=== PATIENT | male | born 1985 | race Hispanic/Latino ===

== ENCOUNTER 2023-07-03 13:15 | Inpatient (IN) | payer OTHER, SELFPAY ==
[2023-07-03] VITALS (9 sets, daily range): BP systolic 107–151; BP diastolic 78–115; BMI 23.0; BMI 21.7
[2023-07-03] MEDS: NSS 1000 IV ×3 (10:20→23:27)
[2023-07-03] MEDS: ATIVAN 2 MG IV (10:20)
--- NOTE | 2023-07-03 10:21 | ED.GENMED ---
History of Present Illness
General
Chief Complaint: Seizure
Source: family and ambulance crew
Time Seen by Provider: 07/03/23 10:15
Travel History
Have you had any contact with someone who has COVID-19?: No
Do you have any symptoms of coronavirus? Fever > 100 degrees, chills, cough, shortness of breath, sore throat, loss of taste or smell, muscle aches, or headache?: No
History of Present Illness
History of Present Illness:
38-year-old male with unknown past medical history but known chronic alcohol abuse presenting to the ER with EMS and family who states that approximately 20 minutes prior to arrival patient had just finished breakfast and went to go lay on the couch
when family witnessed a tonic-clonic seizure describing full body movements, foaming at the mouth that lasted approximately 1 minute. Upon arrival to the [facility] EMS states patient seemed postictal and remained this way. They note patient is
significantly tremulous and tachycardic. No medications were given prior to arrival to the hospital. Family reports that patient had been missing for about 1 year but he came back home yesterday and has been living with the family since yesterday.
They do note patient has a history of chronic alcohol use but patient is unable to quantify how much alcohol he drinks daily. It is also unknown as to when patient's last drink was. Family who is present believes that patient has had alcohol
withdrawal seizures before.
Past History
Past History
ED Past Medical History: Other (Chronic alcohol use)
ED Past Surgical History: None
Social History
Tobacco: Non-smoker
Alcohol: Chronic alcoholic
Drug: None
Personal: Single
Living: with family
Review of Systems
Review of Systems
All Other Systems: ROS reviewed and negative except as documented in HPI and ROS
Phy Exam
Physical Exam
Physical Exam:
GENERAL: Alert , in no apparent distress, thin, appears older than stated age
EYE: pupils equal and reactive, 3 mm bilateral
NECK: Supple
ENT: o/p clr, mmm.
CARDIAC: Tachycardic rate and rhythm with heart rate between 130 and 140 bpm
LUNGS: Clear breath sounds bilaterally, no acute respiratory distress, no wheezes/rales/rhonchi
ABDOMEN: Soft, without focal tenderness, no r/g, no cvat
NEUROLOGICAL: Alert and oriented to self but not place nor time
SKIN: Warm and dry, skin intact.
MUSCULOSKELETAL: well perfused.
PSYCH: Normal and appropriate interaction.
Scores
Heart Failure Risk
Heart Failure Risk Score: Not Applicable
Heart Score for Chest Pain Patients
STEMI patient?: Not applicable
Withdrawal Assessment of Alcohol
Withdrawal Assessment Completed?: Yes
Nausea and Vomiting: Mild nausea with no vomiting
Tactile Disturbances: Very mild itching, pins and needles, burning or numbness
Tremor: Moderate, with patient's arms extended
Auditory Disturbances: Not present
Paroxysmal Sweats: No sweat visible
Visual Disturbances: Not present
Anxiety: Mild anxiety
Headache, Fullness in Head: Not present
Agitation: Moderately fidgety and restless
Orientation and clouding of sensorium: Cannot do serial additions or is uncertain about date
Total CIWA Score: 12
Alcohol Withdrawal Medication Recommendation: Equal to MSAS Score 5-7. Lorazepam 1mg IV or PO NOW & re-assess q2hrs
Course
Orders/Labs/Results
Orders:
Orders
07/03/23
Electrocardiogram (*1) Stat
Reason for Study: Chest Pain
Comment: DONE
07/03/23 10:16
Drug Screen, Urine [Urine Drug Abuse Screen] Urgent
Date Specimen was Collected: 07/03/23
Time Specimen was Collected: 11:33
0.9% Sodium Chloride 1000 ml [Nss] 1,000 ml IV BOLUS
Lorazepam [Ativan] 2 mg IV NOW STA
07/03/23 10:18
CT Head W/o Iv Contrast Urgent
Comment:
Reason For Exam: seizure, suspected ETOH
07/03/23 10:21
Alcohol Urgent
Complete Blood Count/With Diff Urgent
Comprehensive Metabolic Panel Urgent
Magnesium Urgent
PTT Urgent
Phos [Phosphorus] Urgent
Prothrombin Time Urgent
07/03/23 12:17
Add On- LAB Urgent
Tests Added?: urine etoh
Abnormal Lab Results
07/03/23
10:21
RBC 4.52 L 10^6/uL
(4.70-6.10)
MCH 33.6 H pg
(27.0-31.0)
Absolute Lymphs (auto) 1.0 L 10^3/uL
(1.2-3.4)
Neutrophils % 78.9 H %
(42.2-75.2)
Lymphocytes % 12.6 L %
(20.5-51.1)
Sodium 130 L mmol/L
(135-145)
Chloride 95 L mmol/L
(98-107)
Carbon Dioxide 21 L mmol/L
(22-30)
BUN 7 L mg/dl
(9-20)
Creatinine 0.4 L mg/dL
(0.7-1.3)
Glucose 193 H mg/dl
(70-99)
Total Bilirubin 2.2 H mg/dl
(0.2-1.3)
AST 271 H U/L
(17-59)
ALT 80 H U/L
(0-50)
Alkaline Phosphatase 159 H U/L
(38-126)
Total Protein 8.6 H g/dl
(6.3-8.2)
07/03/23 10:21
07/03/23 10:21
Vital Signs
Initial and Last Documented VS:
Initial Vital Signs
Temp Pulse Resp BP Pulse Ox
99.8 F 130 21 138/94 96
07/03/23 10:14 07/03/23 10:14 07/03/23 10:14 07/03/23 10:14 07/03/23 10:14
Last Documented Vital Signs
Temp Pulse Resp BP Pulse Ox
99.8 F 130 21 138/94 96
07/03/23 10:14 07/03/23 10:14 07/03/23 10:14 07/03/23 10:14 07/03/23 10:14
MDM/Problems Addressed
Differential Diagnosis Includes:
Alcohol withdrawal seizure, less likely epileptic seizure, electrolyte disturbance, less likely intracranial bleeding
MDM/Problems Addressed:
38-year-old male with history of longstanding alcohol abuse presenting to the emergency for evaluation after it appears patient had an alcohol withdrawal seizure. He arrives still postictal, tachycardic, tremulous and somewhat confused. It is
unclear as to when patient's last drink was. He states he drinks only 3 or 4 beers daily but family reports he drinks much more than this. Will treat with 2 mg of Ativan for withdrawals. IV fluids ordered. Anticipate admission for continued
treatment.
Chronic conditions affecting care: Other (Chronic alcohol use)
Acute Exacerbation and/or Progression of Chronic Illness: Other (Chronic alcohol use)
*Radiology
Radiology exam reviewed: radiology read reviewed
*Pulse Oximetry
Patient hypoxic: no
*EKG
Interpreted by ED Provider?: Yes
Comparison EKG: no comparison EKG present
Heart Rate: 129
Rate: tachycardiac
Rhythm: sinus
[place]: normal axis
Ischemia: no ischemia
*Audio Visual Tech Interpretation
Rate: tachycardiac
Rhythm: sinus
*Critical Care Note
Total Time (30-74mins, 75-104mins- exclusive of procedures): Not Applicable
Patient Management
Discussion with other providers: Hospitalist
Escalation/DeEscalation of care consider admission/obs:
Patient's heart rate mildly improved following Ativan however he remains significantly tremulous. Given his lack of follow-up, known medical history and withdrawal seizure this morning I do not feel patient is a safe dispo home. Will admit for
continued monitoring, as needed Ativan, and possibly BCARES consultation. Hospitalist team is aware and accepts patient for continued evaluation and treatment.
ED Attending Note
-
Portions of this chart may have been created with voice recognition software.� Occasional wrong word or��sound alike� substitutions may have occurred due to the inherent limitations of voice recognition software.
Discharge Plan
Departure
Patient Disposition: Admit
Date of Disposition: 07/03/23
Time of Disposition: 11:05
Presentation/result/management discussed w/ accepting MD/DO: Hospitalist
Discharge Problem:
Alcohol withdrawal seizure
Prescriptions:
No Action
No Current Medications
0
Referrals:
NONE,* [Family Provider] -
Interventions
Interventions:
*Risk Screen - Suicide Last Done: 07/03/23 10:14
*General Assessment Last Done: 07/03/23 10:14
*Neglect/Abuse Screening Last Done: 07/03/23 10:14
[2023-07-03 10:34] LABS: % Eosinophils 0.4 % (0-6); % Immature Granulocytes 0.4 % (0-0.5); % Lymphocytes 12.6 % (20.5-51.1); % Monocytes 6.7 % (1.7-9.3); % Neutrophils 78.9 % (42.2-75.2); Absolute Basophils 0.1 10^3/uL (0-0.2); Absolute Monocytes 0.5 10^3/uL (0.1-0.6); Absolute Neutrophils 6.2 10^3/uL (1.4-6.5); Hematocrit 41.7 % (39.0-52.0); Hemoglobin 15.2 g/dL (13.0-18.0); Mean Corp Hgb Conc. 36.5 g/dL (33.0-37.0); Mean Corpuscular Hgb 33.6 pg (27.0-31.0); Mean Corpuscular Volume 92.3 fL (80.0-94.0); Mean Platelet Volume 9.2 fL (7.4-10.4); Nucleated Red Blood Cells % 0 % (-); Platelet Count 171 10^3/uL (130-400); Red Blood Cell Count 4.52 10^6/uL (4.70-6.10); White Blood Cell Count 7.9 10^3/uL (4.8-10.8)
[2023-07-03 10:41] LABS: INR 1.04; PT 13.4 Sec (11.4-14.6)
[2023-07-03 10:42] LABS: APTT 27.5 Sec (23.4-35.0)
[2023-07-03 10:44] LABS: ALT (SGPT) 80 U/L (0-50); AST (SGOT) 271 U/L (17-59); Albumin 4.8 g/dl (3.5-5.0); Alkaline Phosphatase 159 U/L (38-126); Blood Urea Nitrogen 7 mg/dl (9-20); Carbon Dioxide 21 mmol/L (22-30); Chloride 95 mmol/L (98-107); Estimated Creatinine Clearance > 125 ml/min; Glucose 193 mg/dl (70-99); Magnesium 1.6 mg/dl (1.6-2.3); Phosphorus 2.8 mg/dl (2.5-4.5); Potassium 3.5 mmol/L (3.5-5.1); Sodium 130 mmol/L (135-145); Total Bilirubin 2.2 mg/dl (0.2-1.3); Total Protein 8.6 g/dl (6.3-8.2); eGFR > 60.00
[2023-07-03 10:46] LABS: Alcohol None Detected
--- NOTE | 2023-07-03 12:06 | HPS.HSE ---
Addendum entered and electronically signed by Seth Brizuela MD 07/03/23 13:15:
Seen and examined by me independently in collaboration with the nurse practitioner Deepa.
Past medical history/social history/medication/allergies reviewed.
Lab data and imaging data reviewed.
Patient with chronic alcohol abuse presents with tonic-clonic seizure x 1 today which happened at home.
Patient speaks Slovenian and his cousin was at bedside as well shooter.
Patient went missing for a year and resurfaced on Monday at his uncles house in [place]. Family in [facility] went to pick him up.
He was ok. He drank beer *6 in afternoon and had some Tequilla in night . This morning helped tonic-clonic seizure for a minute followed by postictal state. He had a prior history of seizures presumed alcohol withdrawal. His Chronic alcoholism
with withdrawal issues. He normally can drink up to a bottle of vodka or tequila a day. Is constantly drinking in the day.
In the last few days due to money constraints he was not drinking as much. Despite having above-mentioned drink yesterday patient's alcohol level not detected on labs today probably very fast metabolizer.
Another factor is he has been drinking less quantity than prior due to money issues lately. Denies drug use.
Currently he is awake and oriented to place, person, day of the week and the year. Not month. He follows commands. He is tremulous. His heart rate is elevated. Blood pressure is okay. Not feeling nauseous. No abdominal pain. Nonfocal
neurologically other than tremors.
Clinical suspicion of alcohol withdrawal seizure
Currently experiencing alcohol withdrawals .
Patient is interested in alcohol rehab program.
Admit to hospital. Started IV fluids, alcohol withdrawal protocol including phenobarb. Suspicion is high likelihood of moderate to severe withdrawal syndrome.Admit to IMU.
Clinical diagnosis, treatment plan discussed with cousin present at bedside. Told him high morbidity and mortality with severe CATY state.
Original Note:
Family Physician
-
Family Physician: * NONE
Chief Complaint
-
seizure
History of Present Illness
38-year-old male with unknown past medical history but known chronic alcohol abuse presented to us with 2 minutes of witnessed tonic clonic seizure describing full body movements. noted foaming at the mouth. Family reports that patient had been
missing for about 1 year but he came back home yesterday and has been living with the family since yesterday. patient drinks more than 4 bottle vodka daily. last drink was last night 9PM. cousin not sure, if he saying truth or not. patient denied
MOORE, dizzy or syncopal episode. denied fever, chills, chest pain, sob. denied abdominal pain, n,v, d. denied dysuria or hematuria. patient stated he had seizure in the past from alcohol withdrawal.
received a dose of Ativan in ER. admitting for further management.
Medical History
Past Medical History
Past Medical History: Reports None
Past Surgical History: Reports None
Social History
Tobacco: Smoker (occassionaly)
Alcohol: Daily (3-4 vodka daily)
Drug: None
Personal: Single
Living: With Family
Employment: Not Employed
Family History
Family History: Not pertinent
Allergies / Home Medications
Allergies reflects when Allergies were last updated in [employer].
Home Medications with original date entered in [employer]
Allergy/Medication List:
Allergies
Allergy/AdvReac Type Severity Reaction Status Date / Time
No Known Allergies Allergy Verified 07/03/23 10:19
Home Medications
No Meds [No Current Medications] 07/03/23
Review of Systems
-
Constitutional: Reports No Symptoms
EENT: Reports No Symptoms
Respiratory: Reports No Symptoms
Cardiac: Reports No Symptoms
Abdomen/GI: Reports No Symptoms
: Reports No Symptoms
Musculoskeletal: Reports No Symptoms
Skin: Reports No Symptoms
Neurological: Reports No Symptoms
Endocrine: Reports No Symptoms
Hematologic/Lymphatic: Reports No Symptoms
Psych: Reports No Symptoms
Physical Exam
Vital Signs
Vital Signs
Temp Pulse Resp BP Pulse Ox
99.8 F 130 21 138/94 96
07/03/23 10:14 07/03/23 10:14 07/03/23 10:14 07/03/23 10:14 07/03/23 10:14
Physical Exam
General: Well Developed, Well Nourished and No Apparent Distress
HEENT: NormoCephalic, Moist mucous membranes and Atraumatic
Respiratory: Clear
Cardiac: S1/S2 and Regular Rhythm; No Murmur or Rub
GI: Soft, Non Tender, Non Distended and Normal Bowel Sounds; No Organomegaly
Rectal: Deferred by Provider
Musculoskeletal: No Clubbing, No Cyanosis and No Edema
Skin: No Rash
Neuro: AO x 3 and Nonfocal/grossly intact
Psych: Calm
Laboratory Results
-
07/03/23 10:21
07/03/23 10:21
Laboratory Results
PT 13.4 Sec (11.4-14.6) 07/03/23 10:21
INR 1.04 07/03/23 10:21
APTT 27.5 Sec (23.4-35.0) 07/03/23 10:21
Total Bilirubin 2.2 mg/dl (0.2-1.3) H 07/03/23 10:21
AST 271 U/L (17-59) H 07/03/23 10:21
ALT 80 U/L (0-50) H 07/03/23 10:21
Alkaline Phosphatase 159 U/L (38-126) H 07/03/23 10:21
Data Reviewed
-
CT Scan: Report Reviewed by me
Lab Data: Labs Reviewed by me
Impression/Plan
-
#alcohol withdrawal seizure
-head CT with No acute intracranial abnormality.
-Ativan prn
-phenobarbital added
-alcohol protocol
-monitor MSAS score
-CTm
#hyponatremia likely from dehydration
-na 130
-normal saline continued
-monitor BMP in am
#elevated transaminase likely from alcohol abuse
-ast 271, ALt 80, alk 159
-denied abdominal pain
-ctm
#DVT prophylaxis
-Lovenox
#CODE status
-full code
[2023-07-03 13:05] LABS: Amphetamines Negative (Negative); Barbiturates Negative (Negative); Benzodiazepines Positive (Negative); Buprenorphine Negative (Negative); Cocaine Negative (Negative); Marijuana Negative (Negative); Methadone Negative (Negative); Methamphetamines Negative (Negative); Opiates Negative (Negative); Phencyclidine Negative (Negative); Tricyclic Antidepressants Negative (Negative)
[2023-07-03 13:42] LABS: Fentanyl, Urine Negative (Negative)
[2023-07-03] MEDS: PHENOBARBITAL 104 MG IV (13:42)
--- NOTE | 2023-07-03 14:40 | PTCARENOTE ---
Received patient from ED on stretcher. Patient Sierra Leonean speaking only. Patient's cousin in room to help translate and help with admission questions. Patient ST on monitor, heart rates 120's. MSAS ordered. IV fluids NSS@ 125 mls/hr infusing.
Clear liquid diet ordered. Oriented patient to room.
[2023-07-03] MEDS: ATIVAN 1 MG IV ×3 (16:02→23:19)
[2023-07-03] MEDS: NSS (PRESERVATIVE FREE) 0.5 ML IV (16:02)
[2023-07-03] MEDS: LOVENOX 40 MG SC (17:37)
[2023-07-03] MEDS: THIAMINE INJECTION 200 MG IV ×2 (17:37→23:20)
[2023-07-03] MEDS: PHENOBARBITAL 97.5 MG IV (21:10)
--- NOTE | 2023-07-03 22:35 | PTCARENOTE ---
Assumed care of Pt from Day RN. Pt Israeli speaking, family in room at times using electronics engineering manager jennifer for communication. Pt on MSAS, see work list. Pt appears to be resting comfortably, respiration even and unlabored. Vitals stable at this time.
Assessment care and vitals as charted.
[2023-07-04] VITALS (9 sets, daily range): BP systolic 110–146; BP diastolic 74–108; BMI 21.7
[2023-07-04] MEDS: ATIVAN 1 MG PO (02:42)
[2023-07-04] MEDS: ATIVAN 1 MG IV (04:54)
[2023-07-04 05:20] LABS: Hematocrit 38.6 % (39.0-52.0); Hemoglobin 13.8 g/dL (13.0-18.0); Mean Corp Hgb Conc. 35.8 g/dL (33.0-37.0); Mean Corpuscular Hgb 33.5 pg (27.0-31.0); Mean Corpuscular Volume 93.7 fL (80.0-94.0); Mean Platelet Volume 9.5 fL (7.4-10.4); Platelet Count 152 10^3/uL (130-400); Red Blood Cell Count 4.12 10^6/uL (4.70-6.10); White Blood Cell Count 8.8 10^3/uL (4.8-10.8)
[2023-07-04 06:09] LABS: ALT (SGPT) 69 U/L (0-50); AST (SGOT) 162 U/L (17-59); Albumin 4.2 g/dl (3.5-5.0); Alkaline Phosphatase 128 U/L (38-126); Blood Urea Nitrogen 6 mg/dl (9-20); Calcium 9.2 mg/dl (8.4-10.2); Carbon Dioxide 21 mmol/L (22-30); Chloride 99 mmol/L (98-107); Estimated Creatinine Clearance > 125 ml/min; Glucose 85 mg/dl (70-99); Potassium 3.5 mmol/L (3.5-5.1); Sodium 128 mmol/L (135-145); Total Bilirubin 2.7 mg/dl (0.2-1.3); Total Protein 7.5 g/dl (6.3-8.2); eGFR > 60.00
--- NOTE | 2023-07-04 08:51 | W.PN.HOSP.TC ---
Today's Communication/Plan
-
Advance diet. Continue with current alcohol withdrawal protocol
Check urine lites and follow sodium
Assessment / Plan
Assessment / Plan
#alcohol withdrawal seizure
# History of prior alcohol withdrawal seizures.
-head CT with No acute intracranial abnormality.
-cw Ativan prn; watch for recurrence.
# Acute alcohol withdrawal syndrom
- pt presents with alcohol withdrawals ;overt sympathetic activity and tremors noted on admission.
- On MSAS protocol and Phenobarb taper
-Today with mild tremors but no tachycardia or hypertension.
-Case management to help patient with alcohol rehab resources
-Advance diet
#hyponatremia
-na 128
-No significant drop with IV fluids noted
- Check urine lytes
-monitor BMP
- Check TSH/Cortisol
# Abnormal liver function test with cholestatic hepatitis picture-suspect alcohol-related
-Hepatitis discriminant index taking control PTH 13-second is 5
-Patient without any fever, leukocytosis or abdominal pain. Not a candidate for steroids.
-Continue to follow liver function test. Check hepatitis serologies.
#DVT prophylaxis
-Lovenox
#CODE status
-full code
Anticipated Discharge: 24 - 48 hours
Subjective/Interval History
-
Date of Service: July 04, 2023
No further seizures.
Limited Kazakh and language barrier makes it difficult for conversation today.
Discussed with RN-no overnight events.
Patient states no nausea and would like to have regular diet.
Objective Data
-
Labs:
Laboratory Results
07/04/23
04:59
WBC 8.8
Hgb 13.8
Hct 38.6 L
Plt Count 152
Sodium 128 L
Potassium 3.5
Chloride 99
Carbon Dioxide 21 L
BUN 6 L
Creatinine 0.4 L
Glucose 85
Calcium 9.2
Total Bilirubin 2.7 H
AST 162 H
ALT 69 H
Alkaline Phosphatase 128 H
Vital Signs:
Vital Signs
Temp Pulse Resp BP Pulse Ox
98.0 F 81 17 121/84 96
07/04/23 07:45 07/04/23 06:00 07/04/23 06:00 07/04/23 06:00 07/04/23 03:45
I&O
07/03/23 07/04/23 07/05/23
06:59 06:59 06:59
Intake Total 3430 / 3430
Output Total 2650 / 2650 450 / 450
Balance 780 / 780 -450 / -450
Review of Systems
-
Unable to obtain full review of systems at this time due to: Language Barrier
Physical Exam
-
General: No Apparent Distress
HEENT: Moist Mucous Membranes
Respiratory: Clear to Auscultation
Cardiac: Regular Rhythm and S1/S2; Negative Tachycardic
GI: Soft, Nontender, Nondistended and Normal Bowel Sounds
Neuro: Awake, Alert and Tremors (mild tremors)
Psych: Calm
Data Reviewed
-
Labs: Labs Reviewed by me
[2023-07-04] MEDS: THIAMINE INJECTION 200 MG IV ×3 (09:20→22:02)
[2023-07-04] MEDS: FOLVITE 1 MG PO (09:20)
[2023-07-04] MEDS: NSS 1000 IV (09:22)
[2023-07-04] MEDS: PHENOBARBITAL 97.5 MG IV ×3 (09:32→22:02)
[2023-07-04 12:15] LABS: Osmolality Urine 251 mOsm/kg (300-900)
--- NOTE | 2023-07-04 12:58 | CM ---
Addendum entered by Kaylee Prince RN 07/04/23 13:20:
Ángel from [facility] met with patient, who is interested in an inpatient or outpatient Etoh program. Ángel will check and see if patient may be eligible for an inpatient program at [facility], where there are other Trinidadian speaking patients. He is aware
that the patient has no insurance.
Plan follow up with GLORIA.
Original Note:
Patient with Dx alcohol withdrawal seizure, hyponatremia. Tox screen noted. MSAS protocol. Receiving IV Phenobarb, IV Ativan prn.
Attempted to meet with patient who was sleeping.
Spoke with patient's cousin Jayson;
the patient had been homeless for about a year and living in [place].
The family had lost contact with him and just found him 2 days prior to admission and brought him to [place].
The patient is residing with his cousin and his aunt in a first floor apartment.
He has been independent in ADLs and ambulation.
The patient has no DME or prior VN.
The patient has no insurance and no PCP.
Provided information to Jayson re; [facility].
Informed patient's cousin PRIYANKA will leave [facility] brochure in Trinidadian at bedside.
Spoke with JAYLAN Villalobos; she will be screening the patient for MA eligibility.
Jayson says that he is aware of patient using alcohol and one time use of cocaine.
He says that the patient wants to start a new chapter of his life without using Etoh/drugs.
He says patient will be willing to talk to GLORIA.
Referral to GLORIA Neal.
Plan follow up with GLORIA.
[2023-07-04 14:25] LABS: Urine Sodium 84 mmol/L (30-90)
--- NOTE | 2023-07-04 18:23 | PTCARENOTE ---
Remained in bed all day- any attempts to get up he is very unsteady, tremulous. MSAS 1-4 throughout the day- phenobarb doses help - sleepy after administration. Oriented , language barrier - folder inspector at bedside. IVF infusing. He did eat lunch
and afterwards had explosive diarrhea- tried to use his urinal to contain it. Whole bed changed. Grateful for care.
[2023-07-04] MEDS: LOVENOX 40 MG SC (18:46)
--- NOTE | 2023-07-04 22:29 | PTCARENOTE ---
Received pt at change of shift. Pt interacting appropriately with staff. MSAS 2. No PRN medications required at this time. Pt increasing fluid intake appropriately since IVF discontinued. Using the urinal with no problems. Pt tremulous at rest
but not diaphoretic; remains afebrile and calm. Pt resting in bed with call peguero in reach.
[2023-07-05] VITALS (12 sets, daily range): BP systolic 111–131; BP diastolic 80–112; BMI 21.2
--- NOTE | 2023-07-05 03:32 | DOWNTIME ---
There was a [employer] Client Compressor Mechanic Downtime on 07/05/2023 from 0100 to 07/05/2023 at 0322. Downtime documentation of patient's care, including medication administrations, has been reconciled in the electronic record per guidelines. Refer to the
patient's paper chart under the miscellaneous tab to see printed paper medication records and downtime forms.
[2023-07-05 04:59] LABS: Hematocrit 40.5 % (39.0-52.0); Mean Corpuscular Hgb 34.2 pg (27.0-31.0); Mean Corpuscular Volume 92.5 fL (80.0-94.0); Mean Platelet Volume 9.2 fL (7.4-10.4); Platelet Count 164 10^3/uL (130-400); Red Blood Cell Count 4.38 10^6/uL (4.70-6.10); Red Cell Dist. Width 11.9 % (11.5-14.5); White Blood Cell Count 5.6 10^3/uL (4.8-10.8)
[2023-07-05 05:28] LABS: ALT (SGPT) 73 U/L (0-50); AST (SGOT) 190 U/L (17-59); Albumin 4.3 g/dl (3.5-5.0); Alkaline Phosphatase 152 U/L (38-126); Blood Urea Nitrogen 8 mg/dl (9-20); Calcium 9.7 mg/dl (8.4-10.2); Carbon Dioxide 23 mmol/L (22-30); Chloride 96 mmol/L (98-107); Estimated Creatinine Clearance > 125 ml/min; Glucose 90 mg/dl (70-99); Potassium 3.6 mmol/L (3.5-5.1); Sodium 130 mmol/L (135-145); Total Bilirubin 1.7 mg/dl (0.2-1.3); Total Protein 7.7 g/dl (6.3-8.2); eGFR > 60.00
[2023-07-05 05:54] LABS: Cortisol, Random 9.3 ug/dl
[2023-07-05] MEDS: FOLVITE 1 MG PO (08:50)
[2023-07-05] MEDS: THIAMINE INJECTION 200 MG IV ×3 (08:50→23:07)
[2023-07-05] MEDS: PHENOBARBITAL 97.5 MG IV ×2 (08:50→15:26)
--- NOTE | 2023-07-05 15:14 | W.PN.HOSP.TC ---
Today's Communication/Plan
-
All discussed with the patient and the family at the bedside
Discussed with the nurse
Assessment / Plan
Assessment / Plan
Physical exam: No sign and symptom of withdrawal currently.
General: Awake, alert and oriented x3, not in distress and holds appropriate conversation.
HEENT: No active discharge, ecchymosis or bruising, moist lips, tongue and mucous membrane.
Eyes: No discharge or red conjunctiva, no nystagmus, pupils are reactive and equal
Neck:Supple, no JVD no bruit no goiter.
Respiratory: Normal AP contour and diameter, normal chest wall movement, normal respiratory effort, no respiratory distress,
Lungs: Good air entry bilaterally, no wheezing or rhonchi, no rales or crackles
Heart: S1, S2 regular, normal rate, no added sound.
Gastrointestinal: Positive bowel sounds, soft, nontender, no guarding or rigidity or organomegaly
Musculoskeletal: , no chest wall abnormality or tenderness. All joints and extremities have good range of motion, no muscle tenderness or any joint swelling or tenderness.
Extremities: No pitting edema, good peripheral pulses, good range of motion
Skin: Warm and dry, no ulceration, normal color.
Psychiatric: Normal mood, normal thought and judgment, normal affect,
#alcohol withdrawal seizure
# History of prior alcohol withdrawal seizures.
-head CT with No acute intracranial abnormality.
-cw Ativan prn; watch for recurrence.
-Recheck electrolyte specially magnesium
-Supplemental thiamine
# Acute alcohol withdrawal syndrom-so far is improving and, no evidence of withdrawal but high risk to go to severe withdrawal and DT
- pt presents with alcohol withdrawals ;overt sympathetic activity and tremors noted on admission.
- On MSAS protocol and Phenobarb taper
-Close monitoring.
-Case management to help patient with alcohol rehab resources
-Tolerates diet
Had a long conversation and counseled about quitting alcohol and risks of the continuation explained to him in detail, he is willing to quit
#hyponatremia
-Improving,
-Monitor
-No significant drop with IV fluids noted
- Check urine lytes
-monitor BMP
- Check TSH/Cortisol
# Abnormal liver function test with cholestatic hepatitis picture-suspect alcohol-related
-Hepatitis discriminant index taking control PTH 13-second is 5
-Avoid hepatotoxic
-Recheck CMP.
-Patient without any fever, leukocytosis or abdominal pain. Not a candidate for steroids.
-Continue to follow liver function test. Check hepatitis serologies.
#DVT prophylaxis
-Lovenox
#CODE status
-full code
Anticipated Discharge: > 48 hours
Subjective/Interval History
-
Date of Service: July 05, 2023
Seen and examined, awake and alert, answer question properly, speaks some degree of Lithuanian well his cousin at the bedside help out to translate.
Denies any fever or chill or cough or congestion, no nausea or vomiting or any weakness or numbness in extremities. No headache or vision change.
Had 1 episode of nonbloody loose bowel earlier.
Tolerating diet.
Symptomatic withdrawal
No new seizure assessment in the hospital
Objective Data
-
Labs:
Laboratory Results
07/05/23
04:50
WBC 5.6
Hgb 15.0
Hct 40.5
Plt Count 164
Sodium 130 L
Potassium 3.6
Chloride 96 L
Carbon Dioxide 23
BUN 8 L
Creatinine 0.4 L
Glucose 90
Calcium 9.7
Total Bilirubin 1.7 H D
AST 190 H
ALT 73 H
Alkaline Phosphatase 152 H
Vital Signs:
Vital Signs
Temp Pulse Resp BP Pulse Ox
97.2 F 78 21 116/85 98
07/05/23 12:00 07/05/23 12:00 07/05/23 12:00 07/05/23 12:00 07/05/23 12:00
I&O
07/04/23 07/05/23 07/06/23
07:59 07:59 07:59
Intake Total 3430 / 3430 2440 / 2440 240 / 240
Output Total 3100 / 3100 2575 / 2575 350 / 350
Balance 330 / 330 -135 / -135 -110 / -110
Review of Systems
-
All other systems: Reviewed and negative
[2023-07-05 15:58] LABS: Magnesium 1.7 mg/dl (1.6-2.3)
--- NOTE | 2023-07-05 16:26 | CM ---
Peruvian speaking patient with Dx alcohol withdrawal seizure, hyponatremia. Tox screen noted. MSAS protocol. Per nurse assessment; assist of 1, stood at bedside, coarse tremors.
Spoke with GLORIA Neal; the patient was given information re; Peruvian speaking AA meetings, and Peruvian speaking therapists. He will not be able to get him a mandi for the [employer] due to having no SS card or other ID.
Message to Dr Padilla requesting PT/OT Evals.
Plan follow up after PT/OT Evals.
Plan home with Etoh outpatient referrals.
[2023-07-05] MEDS: LOVENOX 40 MG SC (17:28)
--- NOTE | 2023-07-05 17:34 | PTCARENOTE ---
MSAS 2-4-2 today, very tremulous and tachycardic just before next dose of phenobarb due- sleepy afterwards and tremors much improved after dose. Tremors are extremely coarse with any activity however made it into the bathroom stood for approx 2 min
and made it back to bed. ST 110-120 on tele during activity. Tolerating po diet- we are ordering for him- unable to tolerate any greasy foods at this time.
--- NOTE | 2023-07-05 18:18 | PTCARENOTE ---
Sat up without support to eat dinner HR s up to 150s- resolved on own with rest.
[2023-07-05] MEDS: LUMINAL 64.7999999999999972 MG PO (23:07)
--- NOTE | 2023-07-05 23:14 | PTCARENOTE ---
Received pt at change of shift. Pt interacting with staff appropriately. Able to ambulate to bathroom with minimal assistance. BMx1 this evening. No episodes of incontinence. Bed alarm on. MSAS 4. pt resting in bed with call peguero in reach.
[2023-07-06] VITALS (12 sets, daily range): BP systolic 94–137; BP diastolic 72–102; PULSE 100–168; BMI 21.2
--- NOTE | 2023-07-06 02:36 | PTCARENOTE ---
Assumed care of Pt from night RN. Pt AAOX3, MSAS currently 4. Pt has no complains at this time. Vitals stable at this time.
[2023-07-06] MEDS: ATIVAN 1 MG IV ×3 (04:39→17:39)
--- NOTE | 2023-07-06 04:42 | PTCARENOTE ---
Pt becoming tachycardic into the 130's. Tossing and turning in bed, up on knees trying to get to stand on feet in bed then throwing self back into lying position. Pulling cords off while trying to recover with blankets. Visible diaphoresis. Pt was
able to be slightly settled with with verbal reorientation with translation but still appearing agitated and restless. Pt has no complaints of pain or hallucination. MSAS completed and medication given(see MAR).
[2023-07-06 04:51] LABS: Hematocrit 44.3 % (39.0-52.0); Hemoglobin 16.3 g/dL (13.0-18.0); Mean Corp Hgb Conc. 36.8 g/dL (33.0-37.0); Mean Corpuscular Hgb 34.2 pg (27.0-31.0); Mean Corpuscular Volume 93.1 fL (80.0-94.0); Mean Platelet Volume 9.5 fL (7.4-10.4); Platelet Count 209 10^3/uL (130-400); Red Blood Cell Count 4.76 10^6/uL (4.70-6.10); Red Cell Dist. Width 12.1 % (11.5-14.5); White Blood Cell Count 7.1 10^3/uL (4.8-10.8)
[2023-07-06 05:22] LABS: ALT (SGPT) 140 U/L (0-50); AST (SGOT) 434 U/L (17-59); Albumin 4.6 g/dl (3.5-5.0); Alkaline Phosphatase 165 U/L (38-126); Blood Urea Nitrogen 13 mg/dl (9-20); Calcium 10.1 mg/dl (8.4-10.2); Carbon Dioxide 23 mmol/L (22-30); Chloride 98 mmol/L (98-107); Estimated Creatinine Clearance > 125 ml/min; Glucose 100 mg/dl (70-99); Magnesium 1.8 mg/dl (1.6-2.3); Potassium 4.4 mmol/L (3.5-5.1); Sodium 130 mmol/L (135-145); Total Bilirubin 1.5 mg/dl (0.2-1.3); Total Protein 8.4 g/dl (6.3-8.2); eGFR > 60.00
[2023-07-06] MEDS: THIAMINE INJECTION 200 MG IV (09:06)
[2023-07-06] MEDS: LUMINAL 64.7999999999999972 MG PO (09:07)
[2023-07-06] MEDS: FOLVITE 1 MG PO (09:07)
[2023-07-06] MEDS: ATIVAN 1 MG PO ×3 (12:14→21:52)
[2023-07-06] MEDS: NSS (PRESERVATIVE FREE) 0.5 ML IV ×2 (13:31→17:39)
--- NOTE | 2023-07-06 15:22 | W.PN.HOSP.TC ---
Today's Communication/Plan
-
All discussed with the patient
Discussed with the nurse
Assessment / Plan
Assessment / Plan
Physical exam: No sign and symptom of withdrawal currently.
General: Fine tremor of upper extremity awake, alert and oriented x3, not in distress and holds appropriate conversation.
HEENT: No active discharge, ecchymosis or bruising, moist lips, tongue and mucous membrane.
Eyes: No discharge or red conjunctiva, no nystagmus, pupils are reactive and equal
Neck:Supple, no JVD no bruit no goiter.
Respiratory: Normal AP contour and diameter, normal chest wall movement, normal respiratory effort, no respiratory distress,
Lungs: Good air entry bilaterally, no wheezing or rhonchi, no rales or crackles
Heart: S1, S2 regular, normal rate, no added sound.
Gastrointestinal: Positive bowel sounds, soft, nontender, no guarding or rigidity or organomegaly
Musculoskeletal: , no chest wall abnormality or tenderness. All joints and extremities have good range of motion, no muscle tenderness or any joint swelling or tenderness.
Extremities: No pitting edema, good peripheral pulses, good range of motion
Psychiatric: Normal mood, normal thought and judgment, normal affect,
#alcohol withdrawal seizure
# History of prior alcohol withdrawal seizures.
-head CT with No acute intracranial abnormality.
-cw Ativan prn; watch for recurrence.
-Look like And worsening symptoms that he has mentioned he is at high risk for DVT
Because of elevated liver enzymes and phenobarbital being metabolized through the liver we will stop phenobarbital taper doses instead use Ativan taper 1 to 1 mg every 6 hours for the next 24 hours followed by half a milligram every 6 hour for 24
hours in addition to as needed doses as discussed with the pharmacy.
-Recheck electrolyte specially magnesium
-Supplemental thiamine
# Acute alcohol withdrawal syndrome-so far is improving and, no evidence of withdrawal but high risk to go to severe withdrawal and DT
- pt presents with alcohol withdrawals ;overt sympathetic activity and tremors noted on admission.
-DC phenobarbital taper as mentioned above
-Close monitoring.
-Case management to help patient with alcohol rehab resources
-Tolerates diet
Had a long conversation and counseled about quitting alcohol and risks of the continuation explained to him in detail, he is willing to quit
#hyponatremia
-Improving,
-Monitor
-No significant drop with IV fluids noted
- Check urine lytes
-monitor BMP
- Check TSH/Cortisol
# Abnormal liver function test with cholestatic hepatitis picture-suspect alcohol-related
-Hepatitis discriminant index taking control PTH 13-second is 5
-Avoid hepatotoxic
-Recheck CMP.
-Patient without any fever, leukocytosis or abdominal pain. Not a candidate for steroids.
-Continue to follow liver function test. Check hepatitis serologies.
#DVT prophylaxis
-Lovenox
#CODE status
-full code
Anticipated Discharge: > 48 hours
Subjective/Interval History
-
Date of Service: July 06, 2023
Seen examined earlier was awake, alert overall was doing better still having some fine tremors but better than before, look like later becoming more confused and restless and sweaty.
No nausea or vomiting, eating and drinking well.
Objective Data
-
Labs:
Laboratory Results
07/06/23
04:34
WBC 7.1
Hgb 16.3
Hct 44.3
Plt Count 209 D
Sodium 130 L
Potassium 4.4
Chloride 98
Carbon Dioxide 23
BUN 13
Creatinine 0.5 L
Glucose 100 H
Calcium 10.1
Total Bilirubin 1.5 H
AST 434 H
ALT 140 H
Alkaline Phosphatase 165 H
Vital Signs:
Vital Signs
Temp Pulse Resp BP Pulse Ox
97.4 F 117 24 137/102 96
07/06/23 11:10 07/06/23 10:00 07/06/23 10:00 07/06/23 10:00 07/06/23 10:00
I&O
07/05/23 07/06/23 07/07/23
07:59 07:59 07:59
Intake Total 2440 / 2440 480 / 480 240 / 240
Output Total 2575 / 2575 850 / 850
Balance -135 / -135 -370 / -370 240 / 240
Review of Systems
-
All other systems: Reviewed and negative
--- NOTE | 2023-07-06 16:25 | PTCARENOTE ---
Rec'd pt this AM. MSAS score gradually increased throughout shift. 1mg IV ativan given for MSAS 9. Dr. Padilla updated via TT. Pt calmer since, now sleeping, arousable. When pt OOB with PT hr 150s. assessment completed with bi analyst via language
line ipad.
[2023-07-06] MEDS: LOVENOX 40 MG SC (16:34)
[2023-07-06 19:50] LABS: Hepatitis B Surface Antigen Negative (Negative)
[2023-07-06 20:09] LABS: Hepatitis B Core Ab, Total Negative (Negative); Hepatitis C Antibody Negative (Negative)
[2023-07-06] MEDS: VITAMIN B1 100 MG PO (21:53)
[2023-07-06 22:32] LABS: Hepatitis B Surface Antibody Indeterminate
[2023-07-07] VITALS (13 sets, daily range): BP systolic 102–135; BP diastolic 69–93; BMI 21.2
[2023-07-07] MEDS: ATIVAN 1 MG PO ×2 (03:54→11:53)
[2023-07-07 04:38] LABS: Hematocrit 41.4 % (39.0-52.0); Mean Corp Hgb Conc. 36.2 g/dL (33.0-37.0); Mean Corpuscular Hgb 34.1 pg (27.0-31.0); Mean Corpuscular Volume 94.1 fL (80.0-94.0); Mean Platelet Volume 9.7 fL (7.4-10.4); Platelet Count 216 10^3/uL (130-400); Red Cell Dist. Width 12.1 % (11.5-14.5)
--- NOTE | 2023-07-07 05:32 | PTCARENOTE ---
Pt is forgetful to the date but aware of place and situation. MSAS has been 2-4; tolerating scheduled PO Ativan. Tremors are present but not severe. HR is 80-100s; did not increase above 110s. Denies N/V. Voiding via urinal. Call peguero within reach.
Pt aware how to utilize the call peguero if he needs anything.
[2023-07-07 05:45] LABS: ALT (SGPT) 202 U/L (0-50); AST (SGOT) 517 U/L (17-59); Albumin 4.2 g/dl (3.5-5.0); Alkaline Phosphatase 162 U/L (38-126); Blood Urea Nitrogen 16 mg/dl (9-20); Calcium 9.8 mg/dl (8.4-10.2); Carbon Dioxide 21 mmol/L (22-30); Chloride 99 mmol/L (98-107); Estimated Creatinine Clearance > 125 ml/min; Glucose 114 mg/dl (70-99); Magnesium 1.8 mg/dl (1.6-2.3); Potassium 4.3 mmol/L (3.5-5.1); Sodium 132 mmol/L (135-145); Total Bilirubin 1.2 mg/dl (0.2-1.3); Total Protein 7.7 g/dl (6.3-8.2); eGFR > 60.00
[2023-07-07] MEDS: FOLVITE 1 MG PO (08:39)
[2023-07-07] MEDS: VITAMIN B1 100 MG PO (08:39)
--- NOTE | 2023-07-07 10:24 | CM ---
CM following re: discharge planning.
Reviewed pt's chart, met with pt.
PT and OT evaluations noted - pt has no skilled PT/OT needs.
Per GLORIA Neal, the patient was given information re; [place]an speaking AA meetings, and Niuean speaking therapists. He will not be able to get him a mandi for the [employer] due to having no SS card or other ID.
D/C plan: home with outpatient ETOH resources
CM will follow with discharge plan updates as hospitalization progresses
[2023-07-07] MEDS: NSS 1000 IV ×2 (11:53→20:17)
[2023-07-07] MEDS: THIAMINE INJECTION 100 MG IV (11:53)
[2023-07-07] MEDS: THERAGRAN 1 TABLET PO (11:53)
--- NOTE | 2023-07-07 15:46 | W.PN.HOSP.TC ---
Addendum entered and electronically signed by Reza Crespo MD 07/07/23 23:01:
Attending Addendum-
I saw and evaluated the patient. I reviewed the resident�s note and agree with findings and plan as documented in the resident�s note. patient with etoh withdrawl and acute hepatitis. patient speaks broken slovak but comprehensible. has no
complaints. Full 12 point ROS reviewed and negative except as documented Exam: GEN- disheveled appearing Heart- RRR lungs clear abd mild tender epigastric area LE no edema Plan:
# Acute ETOH W/D s/p seizure- cont MSAS with ativan- phenobarb stopped due to increased LFT's, start IV thiamine add MVI start IVF cont folic acid- cont to monitor closely, counselled re cessation
# Hypovolemic Hyponatremia- start IVF recheck BMP in am
# Acute Hepatitis- likely EToH related, trending up- start IVF repeat CMP in am
# Epigastric Abd pain- check lipase, check abd u/s to eval for cirrhosis/ascites repeat CMP in am
# DVT proph- lovenox
Dispo- transfer to tele cont to monitor MSAS
Time spent coordinating care, review of plan of care with resident, review of records, med rec, consults, notes, labs, rads, d/w nursing - 55 mins
Original Note:
Today's Communication/Plan
-
transfer to telemetry
IV fluids
Thiamine, folic acid, multivitamin
Abdominal US
Assessment / Plan
Assessment / Plan
38 year old male presented to ED with tonic clonic seizure at home followed by a postictal state.
Assessment and PLAN
Alcohol Withdrawal Seizures
- History of prior alcohol withdrawal seizures.
- On MSAS protocol, on lorazepam
- Tremulous last night, no tremors this morning.
- Increase risk for DT
Switched to IV thiamine 100 mg, multivitamin, folic acid - Banana bag
Patient agreed for alcohol rehab program
Monitor closely
Hypovolumic Hyponatremia
- Iv fluid
CMP in am
Acute transaminitis due to alcohol hepatitis
- Rising level of AST 517>434>190, ALT 202>140>73
- Total bilirubin level resolved to 1.2
- Continue IV fluids
- Risk of alcoholic liver cirrhosis- ordered abdominal US
-Continue to follow liver function test
#transfer to telemetry
#DVT prophylaxis
-Lovenox
#CODE status
-full code
Anticipated Discharge: 24 - 48 hours
Subjective/Interval History
-
Date of Service: July 07, 2023
Patient denies abdominal pain, tremors, hallucinations.
Objective Data
-
Labs:
Laboratory Results
07/07/23
03:54
WBC 6.0
Hgb 15.0
Hct 41.4
Plt Count 216
Sodium 132 L
Potassium 4.3
Chloride 99
Carbon Dioxide 21 L
BUN 16
Creatinine 0.5 L
Glucose 114 H
Calcium 9.8
Total Bilirubin 1.2
AST 517 H*
ALT 202 H
Alkaline Phosphatase 162 H
Vital Signs:
Vital Signs
Temp Pulse Resp BP Pulse Ox
98.2 F 88 17 102/69 98
07/07/23 15:14 07/07/23 08:00 07/07/23 08:00 07/07/23 08:00 07/06/23 22:21
I&O
07/06/23 07/07/23 07/08/23
06:59 06:59 06:59
Intake Total 480 / 480 1200 / 1200
Output Total 850 / 850 250 / 250 400 / 400
Balance -370 / -370 950 / 950 -400 / -400
Review of Systems
-
History Source: Patient
All other systems: Reviewed and negative
Physical Exam
-
General: Comfortable
HEENT: Normocephalic, Atraumatic and Other (icteric )
Respiratory: Clear to Auscultation
Cardiac: Regular Rhythm and S1/S2
GI: Soft, Nontender, Nondistended, Normal Bowel Sounds and No Hepatosplenomegaly
Musculoskeletal: No Edema
Neuro: AO x 3
Hematologic / Lymphatic: No Lymphadenopathy
Psych: Calm
Data Reviewed
-
Labs: Labs Reviewed by me and Discussed with Physician
[2023-07-07] MEDS: LOVENOX 40 MG SC (16:58)
[2023-07-07] MEDS: ATIVAN 0.5 MG PO ×2 (16:58→21:01)
--- NOTE | 2023-07-07 17:39 | PTCARENOTE ---
pt transferred to [facility] level of care. pt being transferred to room 429. report given to recieving zain mejia.
--- NOTE | 2023-07-07 18:30 | PTCARENOTE ---
Received from IMU into room 429. Utilized language line to update patient on plan of care, verbalizes understanding. Oriented to room. Call peguero in reach, bed alarm in place and monitoring.
[2023-07-08 03:05] VITALS: BP 117/83
[2023-07-08] MEDS: ATIVAN 0.5 MG PO (03:24)
[2023-07-08] MEDS: NSS 1000 IV ×2 (04:04→14:21)
[2023-07-08 07:40] VITALS: BP 121/84
[2023-07-08 08:46] LABS: % Basophils 1.7 % (0-2); % Immature Granulocytes 0.3 % (0-0.5); % Lymphocytes 20.2 % (20.5-51.1); % Monocytes 12.5 % (1.7-9.3); % Neutrophils 58.3 % (42.2-75.2); Absolute Basophils 0.1 10^3/uL (0-0.2); Absolute Eosinophils 0.4 10^3/uL (0-0.7); Absolute Lymphocytes 1.2 10^3/uL (1.2-3.4); Absolute Monocytes 0.7 10^3/uL (0.1-0.6); Absolute Neutrophils 3.4 10^3/uL (1.4-6.5); Hematocrit 41.6 % (39.0-52.0); Hemoglobin 14.7 g/dL (13.0-18.0); Mean Corp Hgb Conc. 35.3 g/dL (33.0-37.0); Mean Corpuscular Hgb 33.8 pg (27.0-31.0); Mean Corpuscular Volume 95.6 fL (80.0-94.0); Mean Platelet Volume 9.5 fL (7.4-10.4); Nucleated Red Blood Cells % 0 % (-); Platelet Count 230 10^3/uL (130-400); Red Blood Cell Count 4.35 10^6/uL (4.70-6.10); White Blood Cell Count 5.9 10^3/uL (4.8-10.8)
[2023-07-08 09:10] LABS: ALT (SGPT) 306 U/L (0-50); AST (SGOT) 715 U/L (17-59); Albumin 4.2 g/dl (3.5-5.0); Alkaline Phosphatase 142 U/L (38-126); Blood Urea Nitrogen 10 mg/dl (9-20); Calcium 9.8 mg/dl (8.4-10.2); Carbon Dioxide 23 mmol/L (22-30); Chloride 96 mmol/L (98-107); Estimated Creatinine Clearance > 125 ml/min; Glucose 79 mg/dl (70-99); Magnesium 1.7 mg/dl (1.6-2.3); Sodium 129 mmol/L (135-145); Total Bilirubin 1.2 mg/dl (0.2-1.3); Total Protein 7.7 g/dl (6.3-8.2); eGFR > 60.00
[2023-07-08] MEDS: THIAMINE INJECTION 100 MG IV (09:43)
[2023-07-08] MEDS: THERAGRAN 1 TABLET PO (09:43)
[2023-07-08] MEDS: FOLVITE 1 MG PO (09:43)
[2023-07-08 11:07] VITALS: BP 118/77
[2023-07-08] MEDS: ATIVAN PO (13:32)
--- NOTE | 2023-07-08 14:43 | W.PN.HOSP.TC ---
Today's Communication/Plan
-
Continue Alcohol withdrawal monitoring
Hepatic Transaminases worsening significantly -- consult GI
Assessment / Plan
Assessment / Plan
Physical Exam
General: Comfortable
HEENT: Normocephalic, Atraumatic and Other (icteric )
Respiratory: Clear to Auscultation
Cardiac: Regular Rhythm and S1/S2
GI: Soft, Nondistended, Normal Bowel Sounds. Mild epigastric tenderness.
Musculoskeletal: No Edema
Neuro: AAO x 3
Psych: Calm

38 year old male presented to ED with tonic clonic seizure at home followed by a postictal state.
Assessment/Plan
Alcohol Withdrawal Seizures
- History of prior alcohol withdrawal seizures.
- On MSAS protocol, on lorazepam
- Phenobarb was stopped due to increasing hepatic transaminases
- Tremulous earlier this hospitalization, now no tremors observed
- Increased risk for DT
Continue thiamine, multivitamin, folic acid
Patient agreed for alcohol rehab program
Monitor closely
Hypovolemic Hyponatremia
-Sodium not improved after IV fluids
-PO FR
-Consult nephrology, recommendations appreciated
Acute transaminitis due to alcohol hepatitis
- Rising level of AST 517>434>190, ALT 202>140>73
- Total bilirubin level resolved to 1.2
- Continue IV fluids
- Risk of alcoholic liver cirrhosis - abdominal US as per radiologist's report: 'No gallstones or bile duct dilatation. Increased hepatic parenchymal echotexture and diminished sound through
transmission, suggesting fatty infiltration.'
-July 08, 2023: AST and ALT are worsening significantly despite phenobarbital being stopped
-Consulted GI, recommendations appreciated
#DVT prophylaxis
-Lovenox
#CODE status
-full code
Anticipated Discharge: > 48 hours
Subjective/Interval History
-
Date of Service: July 08, 2023
Patient was seen and examined. He reported being hungry but otherwise denied any other new, significant complaints.
Objective Data
-
Labs:
Laboratory Results
07/08/23
07:47
WBC 5.9
Hgb 14.7
Hct 41.6
Plt Count 230
Sodium 129 L
Potassium 4.0
Chloride 96 L
Carbon Dioxide 23
BUN 10
Creatinine 0.4 L
Glucose 79
Calcium 9.8
Total Bilirubin 1.2
AST 715 H*
ALT 306 H
Alkaline Phosphatase 142 H
Vital Signs:
Vital Signs
Temp Pulse Resp BP Pulse Ox
98.2 F 100 18 118/77 99
07/08/23 11:07 07/08/23 11:07 07/08/23 11:07 07/08/23 11:07 07/08/23 11:07
I&O
07/07/23 07/08/23 07/09/23
06:59 06:59 06:59
Intake Total 1200 / 1200 1460 / 1460
Output Total 250 / 250 1900 / 1900
Balance 950 / 950 -440 / -440
[2023-07-08 15:35] VITALS: BP 115/78
--- NOTE | 2023-07-08 15:48 | W.CON.NEPH ---
Consultation
-
Date/Time Consultation Requested: July 08, 2023 2 PM
Date/Time Consultation Performed: July 08, 2023 3:48 PM
Requesting Provider: Dr. Castro
Performing Provider: Dr. Akers
Reason for Consultation: Hyponatremia
Medical History
-
Chief Complaint: Hyponatremia
History of Present Illness:
This is a 38-year-old gentleman who has very limited past medical history as he does not have a regular doctor nor does he seek regular medical care. He does have known alcoholism. Reportedly he had vanished from his family for about a year
and then was rediscovered at his uncles house in the [place]. His family went to retrieve him. He continued to have alcohol and developed a tonic-clonic seizure. He was brought to the emergency room for evaluation and was admitted. He was noted to
have hyponatremia here around 130 which has not changed. His liver function tests have began to worsen as well. His oral intake has been okay according to the patient.
Past Medical History
Alcoholism, fatty liver, no surgery
Social History
Tobacco: Non-Smoker
Alcohol: Chronic Alcoholic
Family History
Family History: Not Pertinent
Allergies / Home Medications
Allergy/AdvReac Type Severity Reaction Status Date / Time
No Known Allergies Allergy Verified 07/03/23 10:19
�Medication �Instructions �Recorded �Confirmed �Type
No Meds [No Current Medications] 07/03/23 07/03/23 History
Review of Systems
-
No fevers chills or sweats. No chest pain. No shortness of breath. No abdominal pain. No diarrhea. No issues with urine output. The remainder of the complete review of systems was negative.
Physical Exam
Vital Signs
Vital Signs
Temp Pulse Resp BP Pulse Ox
98.2 F 100 18 118/77 99
07/08/23 11:07 07/08/23 11:07 07/08/23 11:07 07/08/23 11:07 07/08/23 11:07
Lab Results
WBC 5.9 10^3/uL (4.8-10.8) 07/08/23 07:47
RBC 4.35 10^6/uL (4.70-6.10) L 07/08/23 07:47
Hgb 14.7 g/dL (13.0-18.0) 07/08/23 07:47
Hct 41.6 % (39.0-52.0) 07/08/23 07:47
Plt Count 230 10^3/uL (130-400) 07/08/23 07:47
Sodium 129 mmol/L (135-145) L 07/08/23 07:47
Potassium 4.0 mmol/L (3.5-5.1) 07/08/23 07:47
Chloride 96 mmol/L (98-107) L 07/08/23 07:47
Carbon Dioxide 23 mmol/L (22-30) 07/08/23 07:47
BUN 10 mg/dl (9-20) 07/08/23 07:47
Creatinine 0.4 mg/dL (0.7-1.3) L 07/08/23 07:47
eGFR > 60.00 07/08/23 07:47
Glucose 79 mg/dl (70-99) 07/08/23 07:47
Calcium 9.8 mg/dl (8.4-10.2) 07/08/23 07:47
Phosphorus 2.8 mg/dl (2.5-4.5) 07/03/23 10:21
Albumin 4.2 g/dl (3.5-5.0) 07/08/23 07:47
Physical Exam
General: AOx3
HEENT: PERRL, EOMI, Ear/Nose Intact, Hearing Normal, Oropharynx Clear/Moist, Neck Supple, Trachea Midline, No JVD and No Thyromegaly
Respiratory: Clear
Abdomen: Soft, Nontender, Nondistended, Normal Bowel Sounds and No Hepatosplenomegaly
Musculoskeletal: No Edema
Skin: No Rash and No Cyanosis
Psych: Mood/afflect pleasant and Insight/judgement good
Assessment/Plan
-
Assessment:
Alcoholism
Hyponatremia
Fatty liver
Transaminitis
Seizure
Plan:
I will offer hypertonic saline at this time.
IV fluids may be held as his oral intake is good.
Follow basic metabolic panel serially
Benzodiazepines for potential of alcohol withdrawal
Data Reviewed
-
Radiology: Report Reviewed by me (On July 08, 2023 abdominal ultrasound shows fatty liver no hydronephrosis; on 07/03/2023 CT of the head shows no active disease)
Medical Tests (Nuc Med, Echo etc): Image Personally Visualized and interpreted (EKG on 07/03/2023 by me shows sinus tachycardia)
Labs: Labs Reviewed by me
[2023-07-08] MEDS: SODIUM CHLORIDE 3% 250 IV (17:37)
[2023-07-08] MEDS: LOVENOX 40 MG SC (17:37)
[2023-07-08 19:54] VITALS: BP 117/80
[2023-07-08 21:01] LABS: Blood Urea Nitrogen 9 mg/dl (9-20); Calcium 9.6 mg/dl (8.4-10.2); Carbon Dioxide 24 mmol/L (22-30); Chloride 96 mmol/L (98-107); Estimated Creatinine Clearance > 125 ml/min; Glucose 109 mg/dl (70-99); Potassium 3.9 mmol/L (3.5-5.1); Sodium 132 mmol/L (135-145); eGFR > 60.00
--- NOTE | 2023-07-08 21:30 | PTCARENOTE ---
Patient was started on 3% NSS today at 1740, it was started at 25 cc/hr. Repeat blood work at 1999 showed a sodium level of 132 (from 129). Notified PROVIDER SCRIBE cooperative education director and asked about decreasing rate or d/cing gtt. She requested I reach out to nephro.
per Dr Akers, stop 3% saline gtt. I asked about repeat labs, will await orders.
Drip turned off. Used aircraft engine mechanic supervisor (Valentino [phone]) to explain plan and that there may be more blood work this evening and that we are watching his blood work closely.
Will continue to monitor patient.
[2023-07-08 23:30] VITALS: BP 112/86
[2023-07-09 04:12] VITALS: BP 126/88
[2023-07-09 07:35] VITALS: BP 113/89
[2023-07-09 10:02] LABS: Hematocrit 45.6 % (39.0-52.0); Hemoglobin 15.7 g/dL (13.0-18.0); Mean Corp Hgb Conc. 34.4 g/dL (33.0-37.0); Mean Corpuscular Hgb 33.5 pg (27.0-31.0); Mean Corpuscular Volume 97.4 fL (80.0-94.0); Mean Platelet Volume 9.1 fL (7.4-10.4); Platelet Count 263 10^3/uL (130-400); Red Blood Cell Count 4.68 10^6/uL (4.70-6.10); Red Cell Dist. Width 12.1 % (11.5-14.5); White Blood Cell Count 6.5 10^3/uL (4.8-10.8)
[2023-07-09 10:05] LABS: ALT (SGPT) 421 U/L (0-50); AST (SGOT) 745 U/L (17-59); Albumin 4.7 g/dl (3.5-5.0); Alkaline Phosphatase 152 U/L (38-126); Blood Urea Nitrogen 8 mg/dl (9-20); Calcium 10.2 mg/dl (8.4-10.2); Carbon Dioxide 27 mmol/L (22-30); Chloride 95 mmol/L (98-107); Estimated Creatinine Clearance > 125 ml/min; Glucose 113 mg/dl (70-99); Potassium 4.3 mmol/L (3.5-5.1); Sodium 132 mmol/L (135-145); Total Protein 8.6 g/dl (6.3-8.2); eGFR > 60.00
[2023-07-09 10:32] LABS: Direct Bilirubin 0.4 mg/dl (0.0-0.4)
--- NOTE | 2023-07-09 11:30 | CON.GI ---
Consultation
-
Date/Time Consultation Requested: 07/08/23 5pm
Date/Time Consultation Performed: 07/09/23 6:15 am
Requesting Provider: Matthew
Performing Provider: Chidi
Reason for Consultation: abnormal lfts
Medical History
Chief Complaint / HPI
Chief Complaint: abnl lfts
History of Present Illness:
This patient is a 38-year-old man with a history of alcoholism and is not from the area. He was drinking alcohol and developed a seizure and was brought to the emergency room. He experienced withdrawal as well as seizures and was put on
phenobarbital. He did have an increase in his transaminases from admission and phenobarbital was stopped.He only has a history of fatty liver but denies any other liver disease. He has not had variceal bleeding or family history of liver disease
as per his story. He did have a UDS that had benzodiazepine and did have a negative hepatitis B and C serology.
Past Medical History
Past Medical History: Other (Fatty liver disease, alcoholism)
Past Surgical History: None
Social History
Tobacco: Non-Smoker
Alcohol: Chronic Alcoholic
Family History
Family History: Reviewed & Not Pertinent
Allergies / Home Medications
Allergy/AdvReac Type Severity Reaction Status Date / Time
No Known Allergies Allergy Verified 07/03/23 10:19
�Medication �Instructions �Recorded
No Meds [No Current Medications] 07/03/23
Review of Systems
-
All other systems: A 12 pt ROS was Negative except as stated above in HPI
Vital Signs
Temp Pulse Resp BP Pulse Ox
97.9 F 84 18 113/89 99
07/09/23 07:35 07/09/23 07:35 07/09/23 07:35 07/09/23 07:35 07/09/23 07:35
Physical Exam
Exam
General: Other (mildly agitated)
Cardiac: S1/S2
GI: Soft and Non Tender
Neuro: Awake and AO x 3 (aax2 shaky)
Psych: Other (shaky)
Results
WBC 6.5 10^3/uL (4.8-10.8) 07/09/23 09:
Hgb 15.7 g/dL (13.0-18.0) 07/09/23 09:
Hct 45.6 % (39.0-52.0) 07/09/23 09:
MCV 97.4 fL (80.0-94.0) H 07/09/23 09:
Plt Count 263 10^3/uL (130-400) 07/09/23 09:
Absolute Neuts (auto) 3.4 10^3/uL (1.4-6.5) 07/08/23 07:47
PT 13.4 Sec (11.4-14.6) 07/03/23 10:21
INR 1.04 07/03/23 10:21
APTT 27.5 Sec (23.4-35.0) 07/03/23 10:21
Sodium 132 mmol/L (135-145) L 07/09/23 09:
Potassium 4.3 mmol/L (3.5-5.1) 07/09/23 09:
Chloride 95 mmol/L (98-107) L 07/09/23 09:
Carbon Dioxide 27 mmol/L (22-30) 07/09/23 09:
BUN 8 mg/dl (9-20) L 07/09/23 09:
Creatinine 0.5 mg/dL (0.7-1.3) L 07/09/23 09:
Calcium 10.2 mg/dl (8.4-10.2) 07/09/23 09:
Total Bilirubin 1.0 mg/dl (0.2-1.3) 07/09/23 09:
AST 745 U/L (17-59) H* 07/09/23 09:
ALT 421 U/L (0-50) H 07/09/23 09:31
Alkaline Phosphatase 152 U/L (38-126) H 07/09/23 09:31
Hep Bs Antibody Indeterminate 07/05/23 04:50
Hep B Core Total Ab Negative (Negative) 07/05/23 04:50
Hepatitis C Antibody Negative (Negative) 07/05/23 04:50
Assessment / Plan
-
This patient has underlying fatty liver and alcoholic liver disease and likely has a concomitant drug-induced liver injury causing a rise in his transaminases. He did initially have normal INR and is still experiencing some withdrawal-like
symptoms. For now I would do the following;
1. follow lfts
2. recheck PT/INR
3. check MEGHANA, ASMA, ceruloplasmin, Hep A, iron studies, celiac
4. imaging shows fatty liver
5. DF normal
6. alcohol abstinence
-
-
Thank you for consultation and allowing me to participate in the patient's care. Please call the supervisor adult education GI physician during the after hours with any questions or concerns.
[2023-07-09 11:32] VITALS: BP 105/68
--- NOTE | 2023-07-09 11:35 | W.PN.NEPH.PH ---
Today's Communication / Plan
-
follow BMP
Assessment/Plan
-
Assessment:
Alcoholism
Hyponatremia
Fatty liver
Transaminitis
Seizure
Plan:
follow BMP
will s/o, call with questions
-
-
Date of Service: July 09, 2023
CC / HPI / ROS
-
Chief Complaint:
hyponatremia
History of Present Illness:
Na up to 132 with 3%
BP stale
hgb stable
Review of Systems:
no CP/SOB
Labs
-
Labs:
WBC 6.5 10^3/uL (4.8-10.8) 07/09/23:
RBC 4.68 10^6/uL (4.70-6.10) L 07/09/23 09:
Hgb 15.7 g/dL (13.0-18.0) 07/09/23 09:
Hct 45.6 % (39.0-52.0) 07/09/23 09:
Plt Count 263 10^3/uL (130-400) 07/09/23 09:
Sodium 132 mmol/L (135-145) L 07/09/23:
Potassium 4.3 mmol/L (3.5-5.1) 07/09/23 09:
Chloride 95 mmol/L (98-107) L 07/09/23:
Carbon Dioxide 27 mmol/L (22-30) 07/09/23 09:
BUN 8 mg/dl (9-20) L 07/09/23:
Creatinine 0.5 mg/dL (0.7-1.3) L 07/09/23:
eGFR > 60.00 07/09/23:
Glucose 113 mg/dl (70-99) H 07/09/23 09:31
Calcium 10.2 mg/dl (8.4-10.2) 07/09/23 09:31
Phosphorus 2.8 mg/dl (2.5-4.5) 07/03/23 10:21
Albumin 4.7 g/dl (3.5-5.0) 07/09/23 09:31
Physical Exam
-
Vital Signs:
Vital Signs
Temp Pulse Resp BP Pulse Ox
97.8 F 89 14 105/68 100
07/09/23 11:32 07/09/23 11:32 07/09/23 11:32 07/09/23 11:32 07/09/23 11:32
Cardiovascular:: Regular rate and rhythm
Respiratory:: Bilateral: Coarse
Lung Excursion:: Normal
Abdomen:: Nontender and Soft
Bowel Sounds:: Normal
Extremity Edema:: None: Bilateral:
[2023-07-09] MEDS: THERAGRAN 1 TABLET PO (12:36)
[2023-07-09] MEDS: FOLVITE 1 MG PO (12:36)
[2023-07-09] MEDS: THIAMINE INJECTION 100 MG IV (12:37)
[2023-07-09] MEDS: FLUSH (NSS) 2 FLUSH IV (12:38)
[2023-07-09 15:30] VITALS: BP 107/68
--- NOTE | 2023-07-09 15:57 | W.PN.HOSP.TC ---
Today's Communication/Plan
-
Continue to monitor for Alcohol Withdrawal
AST and ALT additional workup as per GI
Monitor hepatic transaminases
Assessment / Plan
Assessment / Plan
Physical Exam
General: Comfortable
HEENT: Normocephalic, Atraumatic and Other (icteric )
Respiratory: Clear to Auscultation
Cardiac: Regular Rhythm and S1/S2
GI: Soft, Nondistended, Normal Bowel Sounds. Nontender.
Musculoskeletal: No Edema
Neuro: AAO x 3
Psych: Calm

38 year old male presented to ED with tonic clonic seizure at home followed by a postictal state.
Assessment/Plan
Alcohol Withdrawal Seizures
- History of prior alcohol withdrawal seizures.
- On MSAS protocol, on lorazepam
- Phenobarb was stopped due to increasing hepatic transaminases
- Tremulous earlier this hospitalization, now no tremors observed
- Increased risk for DT
Continue thiamine, multivitamin, folic acid
Patient agreed for alcohol rehab program
Monitor closely
Hypovolemic Hyponatremia
-Sodium not improved after IV fluids
-PO FR
-Consult nephrology, recommendations appreciated: received 3% saline with good improvement in sodium
Acute transaminitis due to alcohol hepatitis
- Worsened significantly
- Continue IV fluids
- Risk of alcoholic liver cirrhosis - abdominal US as per radiologist's report: 'No gallstones or bile duct dilatation. Increased hepatic parenchymal echotexture and diminished sound through
transmission, suggesting fatty infiltration.'
-July 08, 2023: AST and ALT are worsening significantly despite phenobarbital being stopped
-Consulted GI, recommendations appreciated: additional tests ordered MEGHANA, ASMA, ceruloplasmin, Hep A, iron studies, celiac
#DVT prophylaxis
-Lovenox
#CODE status
-full code
Anticipated Discharge: 24 - 48 hours
Subjective/Interval History
-
Date of Service: July 09, 2023
Patient was seen and examined. He was concerned abut his blood draws for lab-work and was worried about too much blood being drawn but later was okay with getting his blood drawn, otherwise he denied pain or any other complaints.
Objective Data
-
Labs:
Laboratory Results
07/09/23
09:31
WBC 6.5
Hgb 15.7
Hct 45.6
Plt Count 263
Sodium 132 L
Potassium 4.3
Chloride 95 L
Carbon Dioxide 27
BUN 8 L
Creatinine 0.5 L
Glucose 113 H
Calcium 10.2
Total Bilirubin 1.0
AST 745 H*
ALT 421 H
Alkaline Phosphatase 152 H
Vital Signs:
Vital Signs
Temp Pulse Resp BP Pulse Ox
97.8 F 89 14 105/68 100
07/09/23 11:32 07/09/23 11:32 07/09/23 11:32 07/09/23 11:32 07/09/23 11:32
I&O
07/08/23 07/09/23 07/10/23
06:59 06:59 06:59
Intake Total 1460 / 1460 1200 / 1200
Output Total 1900 / 1900 2450 / 2450
Balance -440 / -440 -1250 / -1250
[2023-07-09] MEDS: LOVENOX 40 MG SC (18:48)
[2023-07-09 19:25] VITALS: BP 116/75
[2023-07-09 23:24] VITALS: BP 108/69
[2023-07-10 03:01] VITALS: BP 110/71
[2023-07-10 07:35] VITALS: BP 132/68
[2023-07-10 08:17] LABS: Hematocrit 41.9 % (39.0-52.0); Hemoglobin 15.3 g/dL (13.0-18.0); Mean Corp Hgb Conc. 36.5 g/dL (33.0-37.0); Mean Corpuscular Hgb 34.5 pg (27.0-31.0); Mean Corpuscular Volume 94.6 fL (80.0-94.0); Mean Platelet Volume 9.2 fL (7.4-10.4); Platelet Count 297 10^3/uL (130-400); Red Blood Cell Count 4.43 10^6/uL (4.70-6.10); White Blood Cell Count 5.8 10^3/uL (4.8-10.8)
[2023-07-10] MEDS: THERAGRAN 1 TABLET PO (08:22)
[2023-07-10] MEDS: FOLVITE 1 MG PO (08:22)
[2023-07-10] MEDS: THIAMINE INJECTION 100 MG IV (08:22)
[2023-07-10 08:23] LABS: INR 1.04; PT 13.4 Sec (11.4-14.6)
[2023-07-10 08:24] LABS: APTT 31.3 Sec (23.4-35.0)
[2023-07-10 08:24] LABS: Ammonia < 9 umol/L (9-30)
--- NOTE | 2023-07-10 08:30 | W.PN.GI.CBS2 ---
Addendum entered and electronically signed by Dewayne Murillo MD 07/10/23 17:14:
I saw and examined the patient.
The SOCIAL SERVICE LIAISON or PA's note was reviewed and I agree with the note.
Comment:
Pt with no new issues
transaminases coming down
plan:
LFT abnl improving and likely secondary to DILI and alcohol, can be trended as outpatient
alcohol abstinence
Original Note:
Today's Communication / Plan
-
Await labs (LFTS)
Assessment / Plan
-
This patient has underlying fatty liver and alcoholic liver disease and likely has a concomitant drug-induced liver injury causing a rise in his transaminases. Still with normal INR. No tremors this am and denies any GI complaints. Ammonia <9.
1. Await pending MEGHANA, ASMA,ceruloplasmin, Hep A, iron studies, celiac
2. Repeat LFTs pending this am
3. imaging shows fatty liver
4. DF normal
5. alcohol abstinence
Subjective
Subjective
Date of Service: July 10, 2023
Patient denies any GI complaints. States that he is eating well and would like to 'go home'. LFTs, MEGHANA, ASMA, ceruloplasmin, Hep A, iron studies and celiac labs pending.
Objective
Data Reviewed
Laboratory Data:
Laboratory Results
07/10/23 07:52
Laboratory Results
PT 13.4 Sec (11.4-14.6) 07/10/23 07:52
INR 1.04 07/10/23 07:52
APTT 31.3 Sec (23.4-35.0) 07/10/23 07:52
Phosphorus 2.8 mg/dl (2.5-4.5) 07/03/23 10:21
Magnesium 1.7 mg/dl (1.6-2.3) 07/08/23 07:47
Total Bilirubin 1.0 mg/dl (0.2-1.3) 07/09/23 09:31
AST 745 U/L (17-59) H* 07/09/23 09:31
ALT 421 U/L (0-50) H 07/09/23 09:31
Alkaline Phosphatase 152 U/L (38-126) H 07/09/23 09:31
Vital Signs and I&O:
Vital Signs
Temp Pulse Resp BP Pulse Ox
98.4 F 90 18 132/68 100
07/10/23 07:35 07/10/23 07:35 07/10/23 07:35 07/10/23 07:35 07/10/23 07:35
I&O
07/09/23 07/10/23 07/11/23
06:59 06:59 06:59
Intake Total 1200 / 1200 1380 / 1380
Output Total 2450 / 2450
Balance -1250 / -1250 1380 / 1380
Physical Exam
Physical Exam
HEENT: Anicteric
Cardiology: Normal Sinus Rhythm
Pulmonary: Clear (anterior)
GI: Soft, Non Distended, Non Tender and Normal Bowel Sounds
Extremities: No Edema
Neuro: Non Focal and Other (no asterixis)
[2023-07-10 08:44] LABS: ALT (SGPT) 361 U/L (0-50); AST (SGOT) 523 U/L (17-59); Albumin 4.3 g/dl (3.5-5.0); Alkaline Phosphatase 197 U/L (38-126); Blood Urea Nitrogen 9 mg/dl (9-20); Calcium 9.7 mg/dl (8.4-10.2); Carbon Dioxide 24 mmol/L (22-30); Chloride 100 mmol/L (98-107); Estimated Creatinine Clearance > 125 ml/min; Glucose 88 mg/dl (70-99); Iron 112 ug/dl (49-181); Magnesium 1.9 mg/dl (1.6-2.3); Potassium 4.6 mmol/L (3.5-5.1); Sodium 132 mmol/L (135-145); Total Bilirubin 0.7 mg/dl (0.2-1.3); Total Protein 7.9 g/dl (6.3-8.2); eGFR > 60.00
[2023-07-10 08:50] LABS: IgA 568 mg/dl (70-400)
[2023-07-10 08:54] LABS: Percent Saturation 34 % (20-50); Total Iron Binding Capacity 329 ug/dl (261-462)
--- NOTE | 2023-07-10 11:04 | CM ---
Chart reviewed and patient was evaluated by [facility] and they have provided patient with AA meetings, and services with [place]ic speaking staff as outpatient for patient.
Plan; Home with outpatient D&A treatment.
[2023-07-10 11:45] VITALS: BP 116/74
--- NOTE | 2023-07-10 15:09 | W.PN.HOSP.TC ---
Addendum entered and electronically signed by Reza Crespo MD 07/10/23 22:03:
Attending Addendum-
I saw and evaluated the patient. I reviewed the resident�s note and agree with findings and plan as documented in the resident�s note. feels better wants to go home tolerating PO. no NV tremors. Full 12 point ROS reviewed and negative except as
documented Exam: GEN- NAD Heart- RRR lungs clear abd mild tender epigastric area LE no edema Neuro- no tremor Plan:
# Acute ETOH W/D s/p seizure- no meds given per MSAS @ 48 hours, DC for OP eval and rehab cont thiamine MVI and folic acid-counselled re cessation advised to go to rehab NO driving
# Hypovolemic Hyponatremia- resolved
# Acute Hepatitis- resolving, CMP as OP with PCP ok for dc d/w GI
# Epigastric Abd pain- resolving
Dispo- DC home with intent to go to rehab
Time spent coordinating care, review of plan of care with resident, review of records, med rec, consults, DC planning, notes, labs, rads, d/w nursing GI - 36 mins
Original Note:
Today's Communication/Plan
-
Discharge today
Alcohol rehab program
Pending lab results
Assessment / Plan
Assessment / Plan
Physical Exam
General: Comfortable
HEENT: Normocephalic, Atraumatic and Other (icteric )
Respiratory: Clear to Auscultation
Cardiac: Regular Rhythm and S1/S2
GI: Soft, Nondistended, Normal Bowel Sounds. Nontender.
Musculoskeletal: No Edema
Neuro: AAO x 3
Psych: Calm

38 year old male presented to ED with tonic clonic seizure at home followed by a postictal state.
Assessment/Plan
Alcohol Withdrawal Seizures
- History of prior alcohol withdrawal seizures.
- On MSAS protocol, last dose of Ativan was on 07/05
-Transaminase improving
- Tremulous earlier this hospitalization, now no tremors observed
Continue thiamine, multivitamin, folic acid
Patient agreed for alcohol rehab program
From GI standpoint patient is okay to be DC'd
We will be discharging him today
Counseled patient that is very important for him to go into alcohol rehab program
Hypovolemic Hyponatremia
Stable on 132
Patient is asymptomatic
Acute transaminitis due to alcohol hepatitis
-Improving significantly
-Stopped IV fluids
- Risk of alcoholic liver cirrhosis - abdominal US as per radiologist's report: 'No gallstones or bile duct dilatation. Increased hepatic parenchymal echotexture and diminished sound through
transmission, suggesting fatty infiltration.'
-July 08, 2023: AST and ALT are worsening significantly despite phenobarbital being stopped
-Consulted GI, recommendations appreciated: additional tests ordered MEGHANA, ASMA, ceruloplasmin, Hep A, iron studies, celiac
#DVT prophylaxis
-Lovenox
#CODE status
-full code
Anticipated Discharge: Today
Subjective/Interval History
-
Date of Service: July 10, 2023
Patient denies chest pain shortness of breath abdominal pain. Denies tremors
Objective Data
-
Labs:
Laboratory Results
07/10/23
07:52
WBC 5.8
Hgb 15.3
Hct 41.9
Plt Count 297
PT 13.4
INR 1.04
APTT 31.3
Sodium 132 L
Potassium 4.6
Chloride 100
Carbon Dioxide 24
BUN 9
Creatinine 0.5 L
Glucose 88
Calcium 9.7
Total Bilirubin 0.7
AST 523 H*
ALT 361 H
Alkaline Phosphatase 197 H
Vital Signs:
Vital Signs
Temp Pulse Resp BP Pulse Ox
98.2 F 80 18 116/74 99
07/10/23 11:45 07/10/23 11:45 07/10/23 11:45 07/10/23 11:45 07/10/23 11:45
I&O
07/09/23 07/10/23 07/11/23
06:59 06:59 06:59
Intake Total 1200 / 1200 1380 / 1380
Output Total 2450 / 2450
Balance -1250 / -1250 1380 / 1380
Review of Systems
-
History Source: Patient
All other systems: Reviewed and negative
Physical Exam
-
General: Well Developed
HEENT: Normocephalic and Atraumatic
Respiratory: Clear to Auscultation
Cardiac: Regular Rhythm and S1/S2
GI: Soft, Nontender and Nondistended
Musculoskeletal: No Edema
Neuro: AO x 3
Psych: Calm
Data Reviewed
-
Labs: Labs Reviewed by me and Discussed with Physician
--- NOTE | 2023-07-10 15:14 | W.DCSUMMARY ---
Addendum entered and electronically signed by Reza Cerspo MD 07/10/23 22:03:
Attending Addendum:
Read reviewed and agree. See same day progress note for additional details.
Roland Crespo MD
Original Note:
Documented by User: Nighat Caicedo MD, Resident 07/10/23 17:29
Discharge Summary
Discharge Data
Date of Admission: 07/03/23
Date of Discharge: 07/10/23
-
Pending Results: Yes
Hospital Course
Discharge diagnosis
Alcohol withdrawal seizures
Hyponatremia
Acute transaminitis due to alcohol hepatitis
Hospital course
38-year-old male presented to the ED tonic-clonic seizure followed with postictal state which occurred at home. In the ED patient's vitals : Tachycardic, low-grade fever. Patient was started initially on Ativan 2 mg IV, IV fluids. Imaging, CT
head was unremarkable. In the ED patient's lab where sodium 130, glucose 193, transaminitis AST 271, ALT 80, alk phos 159 total bilirubin 2.2. Overnight patient was tremulous, mild tremors noted. We continued Ativan as needed, M shilo protocol.
IV fluid was started for hypovolemic hyponatremia. During the course of the hospital stay his transaminitis level worsened he also complained of mild epigastric pain. Hyponatremia worsened for which he was given 3% hypertonic saline per nephrology
which improved sodium levels to 132. GI was also on board for acute transaminitis patient ultrasound of the abdomen shows fatty liver infiltration. GI ordered couple test ASA, ASMA, serum plasmin, hep A, iron studies, celiac. On the day of the
discharge patient denies experiencing tremors, hallucinations, dizziness. Transaminase levels are improving, patient is hemodynamically stable. Patient was counseled about alcohol rehab program, he agreed to going to the program. Lab results are
still pending.
Alcohol withdrawal seizures
Continue folic acid, thiamine, multivitamin
F/U with PCP
Hyponatremia
Follow-up outpatient, currently stable
Acute transaminitis due to alcohol hepatitis
Transaminase levels improving
ASA, ASMA, hep a, transglutaminase antibody results are pending
CMP in one week
F/U with GI
Discharge Plan
-
Patient Disposition: Home (Routine Discharge)
Discharge Diagnosis/Procedures: Alcohol withdrawal seizures
Acute transaminitis due to alcohol hepatitis
Hyponatremia
Condition: Good
Diet: Regular
Blood Work: cmp in one week
Activity Restrictions/Additional Instructions:
Counseled patient to go to alcohol rehab program
Referrals:
Dewayne Murillo MD [Active] - in less than 1 week
NONE,* [Family Provider] -
Additional Discharge Medication Instructions: Alcohol rehab program
Prescriptions:
New
folic acid 1 mg Tablet
1 mg PO DAILY Qty: 30 0RF
multivitamin with folic acid [Tab-A-Rufino] 400 mcg Tablet
1 tab PO DAILY Qty: 30 0RF
thiamine HCl (vitamin B1) 100 mg tablet
100 mg PO DAILY 30 Days Qty: 30 0RF
Discharge Orders:
Discharge Patient (As Directed); Ordered 07/10/23
Ordered By: Nighat Caicedo
Discharge Date and Time
Discharge Date/Time: 07/10/23 16:00
Print Language: SAUDI ARABIAN

Documented by User: Reza Crespo MD 07/10/23 21:55
Discharge Summary
Discharge Data
Date of Admission: 07/03/23
Date of Discharge: 07/10/23
Discharge Plan
-
Patient Disposition: Home (Routine Discharge)
Discharge Diagnosis/Procedures: Alcohol withdrawal seizures
Acute transaminitis due to alcohol hepatitis
Hyponatremia
Condition: Good
Diet: Regular
Blood Work: cmp in one week
Activity Restrictions/Additional Instructions:
Counseled patient to go to alcohol rehab program
Referrals:
Dewayne Murillo MD [Active] - in less than 1 week
NONE,* [Family Provider] -
Additional Discharge Medication Instructions: Alcohol rehab program
Prescriptions:
New
folic acid 1 mg Tablet
1 mg PO DAILY Qty: 30 0RF
multivitamin with folic acid [Tab-A-Rufino] 400 mcg Tablet
1 tab PO DAILY Qty: 30 0RF
thiamine HCl (vitamin B1) 100 mg tablet
100 mg PO DAILY 30 Days Qty: 30 0RF
Discharge Orders:
Discharge Patient (As Directed); Ordered 07/10/23
Ordered By: Nighat Caicedo
Discharge Date and Time
Discharge Date/Time: 07/10/23 16:00
Print Language: SAUDI ARABIAN
--- NOTE | 2023-07-10 17:14 | W.PN.UPDATE ---
Update Note
Progress Note Update
for billing purposes
[2023-07-11 07:03] LABS: Hepatitis A IgM Antibody Negative (Negative)
[2023-07-11 14:03] LABS: Ceruloplasmin 28 mg/dL (15-30)
[2023-07-11 22:17] LABS: Endomysial IgA Antibody Titer <1:10 (<1:10)
[2023-07-12 01:27] LABS: F-Actin Antibody IgG 4 Units (0-19)
[2023-07-12 01:29] LABS: ANA, IgG Reflex to HEp-2 None Detected (None Detected)
[2023-07-12 16:47] LABS: tTG IgA Antibody 16.5 EU/ml (0-19); tTG IgG Antibody 7.9 EU/ml (0-19)
== END 2023-07-10 16:00 | disposition home or self-care (01) | DRG 897 ==
LOC: 4 WEST ACU 13:15
PROVIDERS: Hospitalist; Physician Assistant Medical; Registered Nurse; ADMITTING PHYSICIAN Internal Medicine; ATTENDING PHYSICIAN Family Medicine; CONSULT PHYSICIAN Internal Medicine; CONSULT PHYSICIAN Specialist; EMERGENCY PHYSICIAN Emergency Medicine
DX: F10.239 Alcohol dependence with withdrawal, unspecified (principal); E87.1 Hypo-osmolality and hyponatremia; K70.10 Alcoholic hepatitis without ascites; F17.200 Nicotine dependence, unspecified, uncomplicated; E86.0 Dehydration; K76.0 Fatty (change of) liver, not elsewhere classified; K71.9 Toxic liver disease, unspecified
CPT/HCPCS: 70450; 76700; 80048; 80053; 80306; 80307; 82077; 82140; 82248; 82390; 82533; 82728; 82784; 83516; 83540; 83550; 83735; 83935; 84100; 84300; 84443; 85025; 85027; 85610; 85730; 86015; 86038; 86231; 86704; 86706; 86709; 86803; 87340; 93005; 96361; 96374; 97162; 97166; 99285; 99406